=== PATIENT | female | born 1950 | race Caucasian/White ===

== ENCOUNTER 2021-03-31 06:43 | Emergency (ER) | payer MEDICARE ==
[2021-03-31] MEDS ORDERED: MEDROL DOSEPAK 24 MG PO (09:50)
[2021-03-31] MEDS ORDERED: CYCLOBENZAPRINE10 MG PO (09:50)
== END 2021-03-31 10:07 | disposition home or self-care (01) ==
LOC: ER1 06:43
DX: M51.26 Other intervertebral disc displacement, lumbar region (principal); M54.41 Lumbago with sciatica, right side; I10 Essential (primary) hypertension; E78.5 Hyperlipidemia, unspecified; Z88.0 Allergy status to penicillin
CPT/HCPCS: 72131; 96372; 99283; J1100; J1885